=== PATIENT | female | born 1990 | race American Indian/Alaskan Native ===

== ENCOUNTER 2018-12-26 07:42 | Emergency (ER) | payer SELFPAY ==
[2018-12-26 07:51] VITALS: BP 130/70
[2018-12-26] MEDS ORDERED: AUGMENTIN 875 MG PO ONE (08:25)
[2018-12-26] MEDS ORDERED: TYLENOL/CODEINE PO ONE (08:25)
--- NOTE | 2018-12-26 08:34 | Emergency Department Report ---
ED ENT HPI - General Chief complaint: Dental/Oral Stated complaint: TOOTHACHE,GUMS SWOLLEN/MIGRANES Time Seen by Provider: 12/26/18 08:03 Source: patient Mode of arrival: Ambulatory Limitations: No Limitations - History of Present Illness MD complaint: tooth pain -: Gradual Location: tooth # (20,21,22) Severity: moderate Severity scale (0 -10): 6 Quality: aching Consistency: constant Worsens with: eating Context- Dental: history of dental caries, poor dental care Associated Symptoms: gum swelling. denies: fever, cough, pain with swallowing, sore throat - Related Data Previous Rx's Medication Instructions Recorded Last Taken Type HYDROcodone/APAP 10-325 [[place] 1 each PO Q6HR PRN #10 tablet 05/14/15 Unknown Rx 10/325] Lansoprazole (Nf) [Prevacid (Nf)] 30 mg PO QDAY #30 capsule 05/14/15 Unknown Rx Ranitidine HCl [Zantac 150 MG TAB] 150 mg PO Q12H #60 tablet 05/14/15 Unknown Rx metroNIDAZOLE [Metronidazole] 500 mg PO BID #14 tablet 10/13/18 Unknown Rx Acetamin/Codeine 120-12Mg/5 ml 5 ml PO TID #60 ml 12/26/18 Unknown Rx [Tylenol/Codeine 120-12 mg/5 ml] Amoxicillin/K Clav Tab [Augmentin 1 each PO TID #21 tablet 12/26/18 Unknown Rx 875MG TAB] Ibuprofen [Motrin] 800 mg PO Q8HR #30 tablet 12/26/18 Unknown Rx Allergies Allergy/AdvReac Type Severity Reaction Status Date / Time No Known Allergies Allergy Unverified 05/14/15 07:06 ED Dental HPI - General Chief complaint: Dental/Oral Stated complaint: TOOTHACHE,GUMS SWOLLEN/MIGRANES Time Seen by Provider: 12/26/18 08:03 Source: patient Mode of arrival: Ambulatory Limitations: No Limitations - Related Data Previous Rx's Medication Instructions Recorded Last Taken Type HYDROcodone/APAP 10-325 [[place] 1 each PO Q6HR PRN #10 tablet 05/14/15 Unknown Rx 10/325] Lansoprazole (Nf) [Prevacid (Nf)] 30 mg PO QDAY #30 capsule 05/14/15 Unknown Rx Ranitidine HCl [Zantac 150 MG TAB] 150 mg PO Q12H #60 tablet 05/14/15 Unknown Rx metroNIDAZOLE [Metronidazole] 500 mg PO BID #14 tablet 10/13/18 Unknown Rx Acetamin/Codeine 120-12Mg/5 ml 5 ml PO TID #60 ml 12/26/18 Unknown Rx [Tylenol/Codeine 120-12 mg/5 ml] Amoxicillin/K Clav Tab [Augmentin 1 each PO TID #21 tablet 12/26/18 Unknown Rx 875MG TAB] Ibuprofen [Motrin] 800 mg PO Q8HR #30 tablet 12/26/18 Unknown Rx Allergies Allergy/AdvReac Type Severity Reaction Status Date / Time No Known Allergies Allergy Unverified 05/14/15 07:06 ED Review of Systems ROS: Stated complaint: TOOTHACHE,GUMS SWOLLEN/MIGRANES Other details as noted in HPI Comment: All other systems reviewed and negative ED Past Medical Hx - Past Medical History Hx GERD: Yes - Social History Smoking Status: Never Smoker Substance Use Type: None - Medications Home Medications: Home Medications Medication Instructions Recorded Confirmed Last Taken Type HYDROcodone/APAP 10-325 [[place] 1 each PO Q6HR PRN #10 tablet 05/14/15 Unknown Rx 10/325] Lansoprazole (Nf) [Prevacid (Nf)] 30 mg PO QDAY #30 capsule 05/14/15 Unknown Rx Ranitidine HCl [Zantac 150 MG TAB] 150 mg PO Q12H #60 tablet 05/14/15 Unknown Rx metroNIDAZOLE [Metronidazole] 500 mg PO BID #14 tablet 10/13/18 Unknown Rx Acetamin/Codeine 120-12Mg/5 ml 5 ml PO TID #60 ml 12/26/18 Unknown Rx [Tylenol/Codeine 120-12 mg/5 ml] Amoxicillin/K Clav Tab [Augmentin 1 each PO TID #21 tablet 12/26/18 Unknown Rx 875MG TAB] Ibuprofen [Motrin] 800 mg PO Q8HR #30 tablet 12/26/18 Unknown Rx ED Physical Exam - General Limitations: No Limitations General appearance: alert, in no apparent distress - Head Head exam: Present: atraumatic, normocephalic - Eye Eye exam: Present: normal appearance - ENT ENT exam: Present: mucous membranes moist - Expanded ENT Exam Expanded Mouth exam: Present: normal external inspection. Absent: drooling, trismus, tongue normal Teeth exam: Present: dental caries, gingival enlargement (20- 22) 1 - Other (caries, gingival swelling) Throat exam: Positive: normal inspection. Negative: tonsillar erythema, tonsillar exudate, R peritonsillar mass - Neck Neck exam: Present: normal inspection, full ROM. Absent: tenderness, lymphadenopathy - Respiratory Respiratory exam: Present: normal lung sounds bilaterally. Absent: respiratory distress - Cardiovascular Cardiovascular Exam: Present: regular rate, normal rhythm. Absent: systolic murmur, diastolic murmur, rubs, gallop - GI/Abdominal GI/Abdominal exam: Present: soft, normal bowel sounds - Extremities Exam Extremities exam: Present: normal inspection - Back Exam Back exam: Present: normal inspection - Neurological Exam Neurological exam: Present: alert, oriented X3 - Psychiatric Psychiatric exam: Present: normal affect, normal mood - Skin Skin exam: Present: warm, dry, intact, normal color. Absent: rash ED Course Vital Signs 12/26/18 07:49 Temperature 98.2 F Pulse Rate 99 H Respiratory 18 Rate Blood Pressure 130/70 O2 Sat by Pulse 100 Oximetry ED Medical Decision Making - Medical Decision Making 28-year-old female who presents with odontogenic caries ED course: Patient received 875mg of amoxicillin, Tylenol /codeine Odontogenic infection versus ear infection. Based upon history and physical examination, pain is a result of an infection of tooth numbers 20 21 22 and that the pain referred pain from this infectious process. Pt has no evidence of acute impending airway compromise. At this point, patient will be discharged home on some antibiotics and pain trial, she will do well with an outpatient course of antibiotics. Follow up with the Dental Clinic as referred Vital signs are normal patient is in no acute distress. Pt had an effect uneventful ED stay Critical care attestation.: If time is entered above; I have spent that time in minutes in the direct care of this critically ill patient, excluding procedure time. ED Disposition Clinical Impression: Dental caries Disposition: DC-01 TO HOME OR SELFCARE Is pt being admited?: No Does the pt Need Aspirin: No Condition: Stable Instructions: Toothache (ED), Dental Caries (ED) Additional Instructions: Make sure to follow up with the primary care physician as discussed. Take all your medications as you've been prescribed. If you have any worsening symptoms or develop new symptoms please return to ED immediately. Prescriptions: Amoxicillin/K Clav Tab [Augmentin 875MG TAB] 1 each PO TID #21 tablet Ibuprofen [Motrin] 800 mg PO Q8HR #30 tablet Acetamin/Codeine 120-12Mg/5 ml [Tylenol/Codeine 120-12 mg/5 ml] 5 ml PO TID #60 ml Referrals: PARISH WOLFE MD [Primary Care Provider] - 3-5 Days [facility] [Outside] - 3-5 Days [facility] [Outside] - 3-5 Days Forms: Accompanied Note, Work/School Release Form(ED)
== END 2018-12-26 09:01 | disposition home or self-care (01) ==
LOC: ED 07:42
DX: K02.9 Dental caries, unspecified (principal); K21.9 Gastro-esophageal reflux disease without esophagitis
CPT/HCPCS: 99282

== ENCOUNTER 2019-07-11 07:25 | Emergency (ER) | payer SELFPAY ==
[2019-07-11] MEDS ORDERED: IBUPROFEN 800 MG TAB PO ONE (08:25)
--- NOTE | 2019-07-11 08:51 | Emergency Department Report ---
ED Upper Extremity Inj HPI - General Chief Complaint: Extremity Injury, Upper Stated Complaint: RT FINGER INJURY/BREAKOUT SPREAD Time Seen by Provider: 07/11/19 08:20 Source: patient Mode of arrival: Ambulatory Limitations: No Limitations - History of Present Illness Initial Comments: 28-year-old female with past medical history GERD presents to Hospital complaining of continued right index finger pain since accidentally slamming it in a safe 2 days ago. Patient taken Tylenol without relief. She is left-hand dominant. She also has a secondary complaint of generalized pruritic plaques at the head. No recent travel, sick contacts, or fever. - Related Data Previous Rx's Medication Instructions Recorded Last Taken Type HYDROcodone/APAP 10-325 [[place] 1 each PO Q6HR PRN #10 tablet 05/14/15 Unknown Rx 10/325] Lansoprazole (Nf) [Prevacid (Nf)] 30 mg PO QDAY #30 capsule 05/14/15 Unknown Rx raNITIdine HCl [Zantac] 150 mg PO Q12H #60 tablet 05/14/15 Unknown Rx metroNIDAZOLE [Metronidazole] 500 mg PO BID #14 tablet 10/13/18 Unknown Rx Acetamin/Codeine 120-12Mg/5 ml 5 ml PO TID #60 ml 12/26/18 Unknown Rx [Tylenol/Codeine 120-12 mg/5 ml] Amoxicillin/K Clav Tab [Augmentin 1 each PO TID #21 tablet 12/26/18 Unknown Rx 875MG TAB] Penicillin Vk [Veetids TAB] 250 mg PO TID #30 tablet 12/29/18 Unknown Rx Clotrimazole 1% [Lotrimin 1%] 1 applic TP BID #1 tube 07/11/19 Unknown Rx Ibuprofen [Motrin 800 MG tab] 800 mg PO Q8HR #30 tablet 07/11/19 Unknown Rx traMADol [Ultram 50 MG tab] 50 mg PO Q6HR PRN #15 tablet 07/11/19 Unknown Rx Allergies Allergy/AdvReac Type Severity Reaction Status Date / Time No Known Allergies Allergy Verified 07/11/19 07:36 ED Review of Systems ROS: Stated complaint: RT FINGER INJURY/BREAKOUT SPREAD Other details as noted in HPI Comment: All other systems reviewed and negative ED Past Medical Hx - Past Medical History Hx GERD: Yes - Surgical History Past Surgical History?: No - Social History Smoking Status: Never Smoker Substance Use Type: None - Medications Home Medications: Home Medications Medication Instructions Recorded Confirmed Last Taken Type HYDROcodone/APAP 10-325 [[place] 1 each PO Q6HR PRN #10 tablet 05/14/15 Unknown Rx 10/325] Lansoprazole (Nf) [Prevacid (Nf)] 30 mg PO QDAY #30 capsule 05/14/15 Unknown Rx raNITIdine HCl [Zantac] 150 mg PO Q12H #60 tablet 05/14/15 Unknown Rx metroNIDAZOLE [Metronidazole] 500 mg PO BID #14 tablet 10/13/18 Unknown Rx Acetamin/Codeine 120-12Mg/5 ml 5 ml PO TID #60 ml 12/26/18 Unknown Rx [Tylenol/Codeine 120-12 mg/5 ml] Amoxicillin/K Clav Tab [Augmentin 1 each PO TID #21 tablet 12/26/18 Unknown Rx 875MG TAB] Penicillin Vk [Veetids TAB] 250 mg PO TID #30 tablet 12/29/18 Unknown Rx Clotrimazole 1% [Lotrimin 1%] 1 applic TP BID #1 tube 07/11/19 Unknown Rx Ibuprofen [Motrin 800 MG tab] 800 mg PO Q8HR #30 tablet 07/11/19 Unknown Rx traMADol [Ultram 50 MG tab] 50 mg PO Q6HR PRN #15 tablet 07/11/19 Unknown Rx ED Physical Exam - General Limitations: No Limitations - Other Other exam information: Gen.: No acute distress Head: Atraumatic Eyes: Normal appearance ENT: Moist mucous membranes Neck: Normal appearance, no posterior midline tenderness, no meningismus Chest: Clear to auscultation bilaterally Cardiovascular: Regular rate and rhythm Abdomen: Normal appearance, soft, nontender, no rebound or guarding, normal bowel sounds Back: Normal appearance, nontender Extremity: Swelling to the radial nail bed border without peeling drainage. Tenderness at the MIP and DIP with limits. Flexion and extension secondary to pain. Neuro: Alert and oriented 3, clear speech, no focal motor or sensory deficit Psychiatric: Appropriate Skin: Patient has scattered scaly dark plaques that are pruritic face, hands, torso, and legs ED Course Vital Signs 07/11/19 07:36 Temperature 98.3 F Pulse Rate 82 Respiratory 16 Rate Blood Pressure 143/81 [Right] O2 Sat by Pulse 98 Oximetry ED Medical Decision Making - Radiology Data Radiology results: report reviewed RIGHT INDEX FINGER 3 VIEWS. INDICATION / CLINICAL INFORMATION: index finger pain after slamming it in safe door COMPARISON: None available. FINDINGS: BONES and JOINT(S): No acute fracture or subluxation. No significant arthritis. SOFT TISSUES: Mild generalized edema is noted along the index finger without an additional significant abnormality. ADDITIONAL FINDINGS: None. IMPRESSION: Mild soft tissue swelling along the right index finger. - Medical Decision Making No fracture identified on x-ray. Patient has limited extension at the PIP joint therefore placed in splint and orthopedic follow-up will be advised. Topical treatment will be provided for ringworm - Differential Diagnosis fracture, contusion, sprain, ringworm, dermatitis Critical Care Time: No Critical care attestation.: If time is entered above; I have spent that time in minutes in the direct care of this critically ill patient, excluding procedure time. ED Disposition Clinical Impression: Ringworm, Finger contusion Disposition: - TO HOME OR SELFCARE Is pt being admited?: No Does the pt Need Aspirin: No Condition: Stable Instructions: Tinea Corporis (ED), Jammed Finger (ED) Additional Instructions: Take the medication as prescribed. Follow-up with your doctor or with the doctor/clinic provided. Return if symptoms worsen as indicated by your discharge instructions. Prescriptions: Clotrimazole 1% [Lotrimin 1%] 1 applic TP BID #1 tube Ibuprofen [Motrin 800 MG tab] 800 mg PO Q8HR #30 tablet traMADol [Ultram 50 MG tab] 50 mg PO Q6HR PRN #15 tablet PRN Reason: Pain Referrals: [facility] [Provider Group] - 3-5 Days (primary care clinic ) SILVIO SANCHEZ MD [Staff Physician] - 3-5 Days SHAYLEE EDWARDS MD [Staff Physician] - 3-5 Days (primary care doctor ) GILMER WALTON MD [Primary Care Provider] - 3-5 Days Time of Disposition: 09:33
--- NOTE | 2019-07-11 09:01 | XRay Report ---
RIGHT INDEX FINGER 3 VIEWS. INDICATION / CLINICAL INFORMATION: index finger pain after slamming it in safe door COMPARISON: None available. FINDINGS: BONES and JOINT(S): No acute fracture or subluxation. No significant arthritis. SOFT TISSUES: Mild generalized edema is noted along the index finger without an additional significan t abnormality. ADDITIONAL FINDINGS: None. IMPRESSION: Mild soft tissue swelling along the right index finger. Signer Name: Sourav Calderon MD Signed: 07/11/2019 8:56 AM Workstation Name: [id number]
[2019-07-11 09:52] VITALS: BP 130/68
== END 2019-07-11 09:51 | disposition home or self-care (01) ==
LOC: ED 07:25
DX: S60.021A Contusion of right index finger without damage to nail, initial encounter (principal); B35.9 Dermatophytosis, unspecified; K21.9 Gastro-esophageal reflux disease without esophagitis; Z79.899 Other long term (current) drug therapy; W23.0XXA Caught, crushed, jammed, or pinched between moving objects, initial encounter; Y93.89 Activity, other specified; Y92.89 Other specified places as the place of occurrence of the external cause; Y99.8 Other external cause status

== ENCOUNTER 2019-07-17 04:22 | Emergency (ER) | payer SELFPAY ==
[2019-07-17 04:33] VITALS: BP 141/81
[2019-07-17] MEDS ORDERED: IBUPROFEN 600 MG TAB PO ONE (04:54)
[2019-07-17] MEDS ORDERED: ACETAMINOPHEN 500 MG TAB PO ONE (04:54)
[2019-07-17] MEDS ORDERED: SULFAMETHOXAZOLE/TRIMETHOPRIM 800/160MG DS TAB PO ONE (04:54)
[2019-07-17] MEDS ORDERED: LIDOCAINE-MPF (1%) 10 MG/1 ML VIAL 5 ML INFILTRATI ONE (04:55)
--- NOTE | 2019-07-17 05:51 | Emergency Department Report ---
Upper Extremity - [facility] Chief Complaint: Extremity Injury, Upper Stated Complaint: RIGHT INDEX FINGER PAIN Upper Extremity: Right Index Finger (swollen erythematous fluctuant rash) Occurred When: >5 Days Mechanism: Other (right index finger hit by a drawer over 2 weeks ago, now swollen and painful) Symptoms: Yes Pain with Movement, Yes Swelling, No Deformity, No Limited Range of Movement, No Numbness, No Weakness, No Bruising/Ecchymosis, No Laceration or Abrasion Other History: Patient is a 28-year-old -[place] female with no past medical history presents to the ED with complaint of acute onset persistent severe painful swollen erythematous maculopapular rash on [place] right index finger floor over 5 days. Patient initially presented to the ED about one week ago with painful swollen right index finger distally after she accidentally hit her right index finger against a drawer about 2 weeks ago. Patient states that the pain has worsened the last 4 days despite taking previously prescribed pain medications. Patient denies dizziness, fever, chills, nausea, vomiting, numbness and tingling or weakness of the right index finger, near injury or heav y lifting. ED Review of Systems ROS: Stated complaint: RIGHT INDEX FINGER PAIN Other details as noted in HPI Constitutional: denies: chills, fever Eyes: denies: eye pain, eye discharge, vision change ENT: denies: ear pain, throat pain Respiratory: denies: cough, shortness of breath, wheezing Cardiovascular: denies: chest pain, palpitations Endocrine: no symptoms reported Gastrointestinal: denies: abdominal pain, nausea, diarrhea Genitourinary: denies: urgency, dysuria, discharge Musculoskeletal: joint swelling (distal right index finger pain with swelling), arthralgia (distal right index finger pain, swelling with fluctuant rash). denies: back pain Skin: rash (Erythematous swollen severely painful maculopapular rash on distal right index finger). denies: lesions Neurological: denies: headache, weakness, paresthesias Psychiatric: denies: anxiety, depression Hematological/Lymphatic: denies: easy bleeding, easy bruising ED Past Medical Hx - Past Medical History Previous Medical History?: Yes Hx GERD: Yes - Surgical History Past Surgical History?: No - Social History Smoking Status: Never Smoker Substance Use Type: None - Medications Home Medications: Home Medications Medication Instructions Recorded Confirmed Last Taken Type HYDROcodone/APAP 10-325 [[place] 1 each PO Q6HR PRN #10 tablet 05/14/15 Unknown Rx 10/325] Lansoprazole (Nf) [Prevacid (Nf)] 30 mg PO QDAY #30 capsule 05/14/15 Unknown Rx raNITIdine HCl [Zantac] 150 mg PO Q12H #60 tablet 05/14/15 Unknown Rx metroNIDAZOLE [Metronidazole] 500 mg PO BID #14 tablet 10/13/18 Unknown Rx Acetamin/Codeine 120-12Mg/5 ml 5 ml PO TID #60 ml 12/26/18 Unknown Rx [Tylenol/Codeine 120-12 mg/5 ml] Amoxicillin/K Clav Tab [Augmentin 1 each PO TID #21 tablet 12/26/18 Unknown Rx 875MG TAB] Penicillin Vk [Veetids TAB] 250 mg PO TID #30 tablet 12/29/18 Unknown Rx Clotrimazole 1% [Lotrimin 1%] 1 applic TP BID #1 tube 07/11/19 Unknown Rx traMADol [Ultram 50 MG tab] 50 mg PO Q6HR PRN #15 tablet 07/11/19 Unknown Rx Acetaminophen/Codeine [Tylenol 1 tab PO Q6H PRN #10 tab 07/17/19 Unknown Rx /Codeine # 3 tab] Ibuprofen [Motrin 800 MG tab] 800 mg PO Q8HR #30 tablet 07/17/19 Unknown Rx Sulfamethoxazole/Trimethoprim 1 each PO Q12H #20 tablet 07/17/19 Unknown Rx [Bactrim DS TAB] Upper Extremity Exam - Exam General: Vital signs noted. No distress. Alert and acting appropriately. Head and Torso: No HEENT Abnormality, No Neck Tenderness, No Chest/Lungs Abnormality, No Abdominal Tenderness, No Back Tenderness Shoulder Exam: Yes Normal Range of Motion in Shoulder, No Shoulder Tenderness, No Clavicle Tenderness, No Shoulder Deformity, No AC Joint Tenderness Arm Exam: No Arm/Humerus Tenderness, No Arm Deformity Elbow: Yes Normal Range of Motion in Elbow, No Elbow Tenderness, No Elbow Deformity Forearm: No Forearm Tenderness, No Forearm Deformity, No Pain with Pronation, No Pain with Supination Wrist: Yes Normal ROM in Wrist, No Wrist Tenderness, No Wrist Deformity, No Snuffbox Tenderness, No Pain with Axial Thumb Compression Hand: Yes Digit Tenderness (right index finger), Yes Normal ROM in Digit(s), No Hand Tenderness, No Hand Deformity, No Digit(s) Deformity, No Tendon Dysfunction CMS Exam: Yes Normal Distal Pulses, Yes Normal Capillary Refill, Yes Normal Distal Sensation, No Broken Skin ED Course Vital Signs 07/17/19 04:27 Temperature 98.5 F Pulse Rate 80 Respiratory 16 Rate Blood Pressure 141/81 O2 Sat by Pulse 98 Oximetry - Reevaluation(s) Reevaluation #1: 07/17/19 05:55 This is a 28-year-old female who presented to the ED with severely painful swollen distal right index finger with erythematous fluctuant rash. In the ED, patient is alert and oriented 3 and is not in distress but appears to be in severe pain. Patient was treated for pain in the ED and also given oral antibiotics. The distal right index finger swollen fluctuant rash was cleaned thoroughly and I&D procedure performed. Patient tolerated the procedure well and was discharged home on pain medications and oral antibiotics. Patient was advised to follow-up with her primary care physician in 7-10 days for reevaluation or return to the ED immediately if symptoms get worse. - I & D Right Dorsal Finger Type of Procedure: Simple Site: distal dorsal right index finger Blade Size: 11 I & D Procedure: betadine prep, sterile drapes applied, sterile dressing applied, gauze wick placed Progress: Patient tolerated the procedure well and was discharged home on medications including antibiotics and pain medications. Patient was advised to return to the ED immediately if symptoms get worse otherwise follow up with the primary care physician in 7-10 days for reevaluation. ED Medical Decision Making - Medical Decision Making This is a 28-year-old female who presented to the ED with severely painful swollen distal right index finger with erythematous fluctuant rash. In the ED, patient is alert and oriented 3 and is not in distress but appears to be in severe pain. Patient was treated for pain in the ED and also given oral antibiotics. The distal right index finger swollen fluctuant rash was cleaned thoroughly and I&D procedure performed. Patient tolerated the procedure well and was discharged home on pain medications and oral antibiotics. Patient was advised to follow-up with her primary care physician in 7-10 days for reevaluation or return to the ED immediately if symptoms get worse. - Differential Diagnosis Paronychia of index finger; cellulitis of index finger; finger contusion Critical care attestation.: If time is entered above; I have spent that time in minutes in the direct care of this critically ill patient, excluding procedure time. ED Disposition Clinical Impression: Paronychia of right index finger, Cellulitis of right index finger Disposition: TO HOME OR SELFCARE Is pt being admited?: No Does the pt Need Aspirin: No Condition: Stable Instructions: Cellulitis (ED), Paronychia (ED) Additional Instructions: Take medication with food, drink plenty of fluids and follow-up with your primary care physician in 7-10 days for reevaluation. Return to the ED immediately if symptoms get worse. Prescriptions: Sulfamethoxazole/Trimethoprim [Bactrim DS TAB] 1 each PO Q12H #20 tablet Ibuprofen [Motrin 800 MG tab] 800 mg PO Q8HR #30 tablet Acetaminophen/Codeine [Tylenol /Codeine # 3 tab] 1 tab PO Q6H PRN #10 tab PRN Reason: Pain , Severe (7-10) Referrals: [facility] [Outside] - 3-5 Days Forms: Work/School Release Form(ED) Time of Disposition: 05:50 Print Language: CITIZEN OF [place]
== END 2019-07-17 06:13 | disposition home or self-care (01) ==
LOC: ED 04:22
DX: L03.011 Cellulitis of right finger (principal); K21.9 Gastro-esophageal reflux disease without esophagitis; Z79.899 Other long term (current) drug therapy
CPT/HCPCS: 99282